=== PATIENT | female | born 1970 | race Caucasian/White ===

== ENCOUNTER 2022-11-22 07:19 | Day surgery (SDC) | payer OTHER ==
[~2022-11-22] VITALS: Ht 152.4 cm; Wt 111.6 kg
[2022-11-22] VITALS (10 sets, daily range): BP systolic 120–138; BP diastolic 56–78
[2022-11-22] MEDS ORDERED: LIDOCAINE HCL 1% 10 MG/ML 10ML VIAL ONE (08:38)
[2022-11-22] MEDS ORDERED: SODIUM BICARBONATE 4% (2.4MEQ) 5ML VIAL IV ONE (08:38)
[2022-11-22] MEDS ORDERED: FENTANYL CITRATE/PF 50MCG/ML 2ML VIAL ONE (09:35)
[2022-11-22] MEDS ORDERED: FENTANYL CITRATE/PF 50MCG/ML 2ML VIAL IV NR (09:45)
[2022-11-22] MEDS ORDERED: HYDROCODONE/ACETAMINOPHEN 5/325MG TABLET PO PRN (10:15)
[2022-11-22 13:13] LABS: HEMATOCRIT 38.7 % (36.0-48.0); HEMOGLOBIN 12.5 g/dL (12.0-16.0)
== END 2022-11-22 13:40 | disposition home or self-care (01) ==
LOC: RAD 07:19
PROVIDERS: ATTEND General Practice
DX: K75.81 Nonalcoholic steatohepatitis (NASH) (principal); K76.89 Other specified diseases of liver; I10 Essential (primary) hypertension; E66.9 Obesity, unspecified; Z79.899 Other long term (current) drug therapy; Z98.890 Other specified postprocedural states; Z20.822 Contact with and (suspected) exposure to COVID-19
CPT/HCPCS: 36415; 47000; 76942; 85014; 85018; 87426; C9803; J3010; J3490; Z7610; 99152; 99153; G0500

== ENCOUNTER → 2023-12-11 | Day surgery (SDC) | payer OTHER ==
[~2023-12-11] VITALS: Ht 152.4 cm; Wt 83.9 kg
[2023-12-11] VITALS (11 sets, daily range): BP systolic 107–125; BP diastolic 56–72; PULSE 77–86; RESP 16–20
[~2023-12-11] MED LIST: FENTANYL CITRATE/PF 50MCG/ML 2ML VIAL ONE; HYDROCODONE/ACETAMINOPHEN 5/325MG TABLET PO PRN; LIDOCAINE HCL 1% 10 MG/ML 10ML VIAL ONE; NALOXONE HCL 0.4MG/ML VIAL IV PRN
[2023-12-11] MEDS: FENTANYL CITRATE/PF 50MCG/ML 2ML VIAL IV ONE (09:35)
[2023-12-11 14:15] LABS: HEMATOCRIT 36.1 % (36.0-48.0); HEMOGLOBIN 11.6 g/dL (12.0-16.0)
== END | disposition home or self-care (01) ==
LOC: RAD 08:30
PROVIDERS: ATTEND General Practice
DX: K76.89 Other specified diseases of liver (principal); I10 Essential (primary) hypertension; E66.9 Obesity, unspecified; Z79.899 Other long term (current) drug therapy; Z98.890 Other specified postprocedural states
CPT/HCPCS: 85014; 85018; 36415; 76942; 47000; J3010; J3490; Z7610 ×3